=== PATIENT | female | born 1970 | race African-American/Black ===

== ENCOUNTER → 2020-11-11 | Outpatient (CLI) | payer SELFPAY ==
--- NOTE | 2020-11-11 15:59 | RAD ---
INDICATION: Reason: HEAD INJURY / Spl. Instructions: / History: COMPARISON: None. TECHNIQUE: Axial CT images obtained through the head without intravenous contrast. One or more of the following individualized dose reduction techniques were utilized for this examinat ion: 1. Automated exposure control; 2. Adjustment of the mA and/or kV according to patient size; 3 . Use of iterative reconstruction technique. FINDINGS: No intracranial hemorrhage. No midline shift. Basal cisterns patent. Ventricles and sulci are unremarkable. No acute osseous abnormality. Orbits and paranasal sinuses unremarkable. IMPRESSION: * No acute intracranial hemorrhage. Electronically signed by: Shade Bernardo MD (11/11/2020 3:57 PM) [id number]
== END ==
LOC: CT 14:44
PROVIDERS: ATTEND Preventive Medicine Occupational Medicine
DX: S39.012A Strain of muscle, fascia and tendon of lower back, initial encounter (principal); M65.812 Other synovitis and tenosynovitis, left shoulder; G44.319 Acute post-traumatic headache, not intractable; X58.XXXA Exposure to other specified factors, initial encounter; Y93.89 Activity, other specified; Y92.89 Other specified places as the place of occurrence of the external cause; Y99.8 Other external cause status
CPT/HCPCS: 70450